=== PATIENT | male | born 1955 | race African-American/Black ===

== ENCOUNTER 2017-05-01 06:47 | Day surgery (SDC) | payer MEDICARE ==
[~2017-05-01 06:47] MED LIST: CRESTOR40 MG PO; TIMOLOL MALEAT IO; TIMOPTIC XE OU; XALATAN0.005 % OU
[2017-05-01 11:01] VITALS: BP 137/81
== END 2017-05-01 11:15 | disposition home or self-care (01) ==
LOC: ENDO 06:47
PROVIDERS: ATTEND Surgery
PROC: 0DJD8ZZ Inspection of Lower Intestinal Tract, Via Natural or Artificial Opening Endoscopic (ICD-10-PCS; principal; 2017-05-01)
DX: Z12.11 Encounter for screening for malignant neoplasm of colon (principal); K57.30 Diverticulosis of large intestine without perforation or abscess without bleeding; E78.00 Pure hypercholesterolemia, unspecified; H54.8 Legal blindness, as defined in USA; Z98.890 Other specified postprocedural states

== ENCOUNTER 2018-01-30 09:51 | Observation (INO) | payer MEDICARE ==
[~2018-01-30] VITALS: Ht 182.9 cm; Wt 176.1 kg
[2018-01-30 10:16] LABS: HEMATOCRIT 43.6 % (39.0-50.0); IMMATURE GRANULOCYTES 1.3 % (0.0-1.0); MEAN CELL VOLUME 92.4 fL CALC (80.0-100.0); MEAN CORPUSCULAR HGB 29.7 pG CALC (26.0-32.0); MEAN CORPUSCULAR HGB CONC 32.1 g/L CALC (32.0-36.0); NEUT# 9.69 thou/uL (1.82-7.42); RED BLOOD COUNT 4.72 mill/uL (4.70-6.10); RED CELL DISTRI WIDTH 15.6 % (11.5-15.5)
[2018-01-30 10:36] LABS: ANION GAP 18 (6-22 (CALC)); BUN 10 mg/dL (8-23); BUN/CREATININE RATIO 15 (12-20 (CALC)); CARBON DIOXIDE 25 mmol/l (22-30); CHLORIDE 105 mmol/l (95-108); CREATININE 0.7 mg/dL (0.7-1.3); GFR > 60 ML/MIN (>=60 (CALC)); GFR FOR AFR.AMER. > 60 ML/MIN (>=60 (CALC)); POTASSIUM 4.3 mmol/l (3.5-5.1); SODIUM 143 mmol/l (137-146)
[2018-01-30 12:37] VITALS: BP 119/71
[2018-01-30 16:00] VITALS: BP 134/79
[2018-01-30 20:00] VITALS: BP 102/65
[2018-01-31 00:25] VITALS: BP 141/86
[2018-01-31 04:25] VITALS: BP 144/73
[2018-01-31 06:08] LABS: HEMATOCRIT 44.3 % (39.0-50.0); HEMOGLOBIN 14.3 g/dl (14.0-18.0); IMMATURE GRANULOCYTES 1.1 % (0.0-1.0); MEAN CELL VOLUME 91.5 fL CALC (80.0-100.0); MEAN CORPUSCULAR HGB 29.5 pG CALC (26.0-32.0); MEAN CORPUSCULAR HGB CONC 32.3 g/L CALC (32.0-36.0); NEUT# 7.47 thou/uL (1.82-7.42); RED BLOOD COUNT 4.84 mill/uL (4.70-6.10); RED CELL DISTRI WIDTH 15.6 % (11.5-15.5)
[2018-01-31 06:13] LABS: ANION GAP 16 (6-22 (CALC)); BUN 10 mg/dL (8-23); BUN/CREATININE RATIO 16 (12-20 (CALC)); CALCULATED LDLCHOLESTEROL 61 mg/dL (62-129 (CALC)); CARBON DIOXIDE 27 mmol/l (22-30); CHLORIDE 104 mmol/l (95-108); CHOLESTEROL HDL RATIO 1.9 (<4.4 (CALC)); CREATININE 0.7 mg/dL (0.7-1.3); GFR > 60 ML/MIN (>=60 (CALC)); GFR FOR AFR.AMER. > 60 ML/MIN (>=60 (CALC)); HDL CHOLESTEROL 83 mg/dL (>=40); POTASSIUM 4.2 mmol/l (3.5-5.1); SODIUM 143 mmol/l (137-146); TOTAL CHOLESTEROL 154 mg/dl (0-199); TOTAL TRIGLYCERIDES 52 mg/dl (30-149); VLDL CHOLESTROL 10 mg/dl (4-45 (CALC))
[2018-01-31 07:16] VITALS: BP 147/81
[2018-01-31] MEDS ORDERED: ASPIRIN CHEWABL81 MG PO (08:51)
== END 2018-01-31 09:45 | disposition home or self-care (01) ==
LOC: ED 09:51 → ED-I 11:00 → ED 11:28 → MS2 11:29
PROVIDERS: Family Medicine; ADMIT Internal Medicine; ATTEND Internal Medicine
DX: R07.89 Other chest pain (principal); E78.5 Hyperlipidemia, unspecified; G47.33 Obstructive sleep apnea (adult) (pediatric); K44.9 Diaphragmatic hernia without obstruction or gangrene; F17.290 Nicotine dependence, other tobacco product, uncomplicated

== ENCOUNTER 2020-12-19 03:15 | Emergency (ER) | payer MEDICARE ==
[~2020-12-19] VITALS: Ht 182.9 cm; Wt 194.5 kg
[~2020-12-19 03:15] MED LIST changes: +ASPIRIN CHEWABL81 MG PO; +ASPIRIN81 MG PO; +BETIMOL0.25 % OP; +LASIX 80 MG TAB80 M1 PO; +LOSARTAN POT50 MG PO; +TIZANIDINE2 MG PO
[2020-12-19] MEDS ORDERED: POTASSIUM CHLO20 ME2 PO (03:48)
[2020-12-19 05:07] VITALS: BP 164/76
[2020-12-19 05:25] LABS: URINE BILIRUBIN - DIPSTICK NEGATIVE (NEGATIVE); URINE BLOOD DIPSTICK NEGATIVE (NEGATIVE); URINE CLARITY CLEAR; URINE COLOR YELLOW; URINE GLUCOSE - DIPSTICK NEGATIVE (NEGATIVE); URINE KETONE NEGATIVE (NEGATIVE); URINE LEUK ESTERASE NEGATIVE (Negative); URINE NITRITE - DIPSTICK NEGATIVE (Negative); URINE PH 5.5 (4.5-8.0); URINE PROTEIN - DIPSTICK 30 mg/dL (NEG-TRACE); URINE SPECIFIC GRAVITY 1.025; URINE UROBILINOGEN - DIPSTICK 0.2 E.U./dL (0.2)
[2020-12-19 05:34] LABS: URINE BACTERIA FEW hpf; URINE EPITHELIAL CELLS FEW EPI/hpf (0-FEW); URINE RBC 0-2 RBC/hpf (0-5)
== END 2020-12-19 05:15 | disposition home or self-care (01) ==
LOC: ED 03:15
PROVIDERS: Emergency Medicine
DX: U07.1 COVID-19 (principal); R52 Pain, unspecified; I10 Essential (primary) hypertension; F17.200 Nicotine dependence, unspecified, uncomplicated

== ENCOUNTER 2020-12-24 20:21 | Emergency (ER) | payer MEDICARE ==
[~2020-12-24] VITALS: Ht 182.9 cm; Wt 186.0 kg
[~2020-12-24 20:21] MED LIST changes: +LASIX 20 MG TAB20 MG PO; -LASIX 80 MG TAB80 M1 PO; +POTASSIUM CHLO10 MEQ PO
[2020-12-24] MEDS ORDERED: LATANOPROST0.005 % OU (21:13)
[2020-12-24] MEDS ORDERED: BRIMONIDINE TAR0.2 % OP (21:14)
[2020-12-24 21:55] LABS: HEMATOCRIT 40.6 % (39.0-50.0); HEMOGLOBIN 12.7 g/dl (14.0-18.0); IMMATURE GRANULOCYTES 0.6 % (0.0-5.0); MEAN CELL VOLUME 91.9 fL CALC (80.0-100.0); MEAN CORPUSCULAR HGB 28.7 pG CALC (26.0-32.0); MEAN CORPUSCULAR HGB CONC 31.3 g/dL CAL (32.0-36.0); NEUT# 5.88 thou/uL (1.82-7.42); RED BLOOD COUNT 4.42 mill/uL (4.70-6.10); RED CELL DISTRI WIDTH 14.5 % (11.5-15.5)
[2020-12-24 22:03] LABS: ALBUMIN 4.2 g/dL (3.2-5.0); ALKALINE PHOSPHATASE 50 u/l (38-126); ANION GAP 13 (6-22 (CALC)); BILIRUBIN, TOTAL 0.8 mg/dL (0.0-1.4); BUN 6 mg/dL (8-23); BUN/CREATININE RATIO 9 (12-20 (CALC)); CARBON DIOXIDE 27 mmol/l (22-30); CHLORIDE 100 mmol/l (95-108); CREATININE 0.7 mg/dL (0.7-1.3); GFR > 60 ML/MIN (>=60 (CALC)); GFR FOR AFR.AMER. > 60 ML/MIN (>=60 (CALC)); POTASSIUM 3.8 mmol/l (3.5-5.1); SGOT/AST 54 u/l (19-48); SODIUM 136 mmol/l (137-146)
[2020-12-24 22:09] LABS: ACT PARTIAL THROMBO TIME 27.7 SECONDS (20.0-32.5); PROTHROMBIN TIME 10.2 SECONDS (9.0-12.5)
[2020-12-24 22:15] LABS: D-DIMER 0.65 mg/L (0.19-0.60); MYOGLOBIN 40 ng/mL (0 - 121)
[2020-12-24 23:32] VITALS: BP 115/62
== END 2020-12-24 23:50 | disposition home or self-care (01) ==
LOC: ED 20:21
PROVIDERS: Family Medicine
DX: U07.1 COVID-19 (principal); I10 Essential (primary) hypertension; H54.8 Legal blindness, as defined in USA
CPT/HCPCS: Q9967

== ENCOUNTER 2022-05-28 06:17 | Observation (INO) | payer MEDICARE ==
[2022-05-28] VITALS (21 sets, daily range): BP systolic 128–205; BP diastolic 54–177
[~2022-05-28] VITALS: Ht 182.9 cm; Wt 193.0 kg
[~2022-05-28 06:17] MED LIST changes: -BETIMOL0.25 % OP; +BETIMOL0.25 % OU; +BRIMONIDINE TAR0.2 % OP; +LATANOPROST0.005 % OU
[2022-05-28 07:14] LABS: HEMATOCRIT 39.8 % (39.0-50.0); HEMOGLOBIN 12.9 g/dl (14.0-18.0); IMMATURE GRANULOCYTES 1.1 % (0.0-5.0); MEAN CELL VOLUME 90.5 fL CALC (80.0-100.0); MEAN CORPUSCULAR HGB 29.3 pG CALC (26.0-32.0); MEAN CORPUSCULAR HGB CONC 32.4 g/dL CAL (32.0-36.0); NEUT# 5.5 thou/uL (1.82-7.42); RED BLOOD COUNT 4.4 mill/uL (4.70-6.10); RED CELL DISTRI WIDTH 14.8 % (11.5-15.5)
[2022-05-28 07:34] LABS: ALKALINE PHOSPHATASE 78 u/l (38-126); ANION GAP 12 (6-22 (CALC)); BILIRUBIN, TOTAL 0.4 mg/dL (0.0-1.4); BUN 11 mg/dL (8-23); BUN/CREATININE RATIO 14 (12-20 (CALC)); CARBON DIOXIDE 22 mmol/l (22-30); CHLORIDE 108 mmol/l (95-108); CREATININE 0.8 mg/dL (0.7-1.3); GFR FOR AFR.AMER. > 60 ML/MIN (>=60 (CALC)); GFR OTHER RACES > 60 ML/MIN (>=60 (CALC)); MAGNESIUM 2.2 mg/dL (1.6-2.3); POTASSIUM 3.8 mmol/l (3.5-5.1); SGOT/AST 25 u/l (19-48); SODIUM 138 mmol/l (137-146); TOTAL PROTEIN 7.5 g/dL (6.3-8.2)
[2022-05-28 07:45] LABS: MYOGLOBIN 26 ng/mL (0 - 121)
[2022-05-28 07:46] LABS: D-DIMER 0.39 mg/L (0.19-0.60)
[2022-05-28 08:04] LABS: URINE BILIRUBIN - DIPSTICK NEGATIVE (NEGATIVE); URINE BLOOD DIPSTICK NEGATIVE (NEGATIVE); URINE COLOR YELLOW; URINE GLUCOSE - DIPSTICK NEGATIVE (NEGATIVE); URINE KETONE NEGATIVE (NEGATIVE); URINE LEUK ESTERASE NEGATIVE (NEGATIVE); URINE PROTEIN - DIPSTICK NEGATIVE (NEG-TRACE); URINE UROBILINOGEN - DIPSTICK 0.2 E.U./dL (0.2)
[2022-05-28 08:06] LABS: URINE NITRITE - DIPSTICK NEGATIVE (Negative)
[2022-05-28 08:23] LABS: ACT PARTIAL THROMBO TIME 26.9 SECONDS (20.0-32.5); PROTHROMBIN TIME 9.8 SECONDS (9.0-12.5)
[2022-05-28] MEDS ORDERED: LASIX 40 MG TAB40 MG PO (10:13)
[2022-05-28] MEDS ORDERED: CYANOCOBAL1000 MCG/M IM (12:55)
[2022-05-28] MEDS ORDERED: LOSARTAN POTASS50 MG PO (21:36)
[2022-05-29] VITALS (9 sets, daily range): BP systolic 115–178; BP diastolic 49–98
[2022-05-29 05:33] LABS: HEMATOCRIT 37.5 % (39.0-50.0); HEMOGLOBIN 12.1 g/dl (14.0-18.0); IMMATURE GRANULOCYTES 1.1 % (0.0-5.0); MEAN CELL VOLUME 91.7 fL CALC (80.0-100.0); MEAN CORPUSCULAR HGB 29.6 pG CALC (26.0-32.0); MEAN CORPUSCULAR HGB CONC 32.3 g/dL CAL (32.0-36.0); NEUT# 5.76 thou/uL (1.82-7.42); RED BLOOD COUNT 4.09 mill/uL (4.70-6.10); RED CELL DISTRI WIDTH 14.9 % (11.5-15.5)
[2022-05-29 05:43] LABS: ALBUMIN 3.4 g/dL (3.2-5.0); ALKALINE PHOSPHATASE 61 u/l (38-126); ANION GAP 10 (6-22 (CALC)); BILIRUBIN, TOTAL 0.3 mg/dL (0.0-1.4); BUN 10 mg/dL (8-23); BUN/CREATININE RATIO 14 (12-20 (CALC)); CALCULATED LDLCHOLESTEROL 66 mg/dL (62-129 (CALC)); CARBON DIOXIDE 25 mmol/l (22-30); CHLORIDE 111 mmol/l (95-108); CHOLESTEROL HDL RATIO 2.5 (<4.4 (CALC)); CREATININE 0.7 mg/dL (0.7-1.3); GFR FOR AFR.AMER. > 60 ML/MIN (>=60 (CALC)); GFR OTHER RACES > 60 ML/MIN (>=60 (CALC)); HDL CHOLESTEROL 55 mg/dL (>=40); MAGNESIUM 2.1 mg/dL (1.6-2.3); POTASSIUM 3.9 mmol/l (3.5-5.1); SGOT/AST 13 u/l (19-48); SODIUM 141 mmol/l (137-146); TOTAL CHOLESTEROL 138 mg/dl (0-199); TOTAL PROTEIN 6.3 g/dL (6.3-8.2); TOTAL TRIGLYCERIDES 81 mg/dl (30-149); VLDL CHOLESTROL 16 mg/dl (4-45 (CALC))
[2022-05-30] VITALS (9 sets, daily range): BP systolic 117–152; BP diastolic 55–90
[2022-05-30 06:11] LABS: ANION GAP 9 (6-22 (CALC)); BUN 8 mg/dL (8-23); BUN/CREATININE RATIO 12 (12-20 (CALC)); CARBON DIOXIDE 22 mmol/l (22-30); CHLORIDE 115 mmol/l (95-108); CREATININE 0.7 mg/dL (0.7-1.3); GFR FOR AFR.AMER. > 60 ML/MIN (>=60 (CALC)); GFR OTHER RACES > 60 ML/MIN (>=60 (CALC)); POTASSIUM 3.6 mmol/l (3.5-5.1); SODIUM 143 mmol/l (137-146)
[2022-05-31 03:45] VITALS: BP 145/70
[2022-05-31 07:08] VITALS: BP 162/78
[2022-05-31 12:00] VITALS: BP 164/87
[2022-05-31] MEDS ORDERED: NITROSTAT0.4 MG SL (12:31)
== END 2022-05-31 13:15 | disposition home or self-care (01) ==
LOC: ED 06:17 → ED-I 09:35 → ED 09:51 → MS2 09:52
PROVIDERS: Family Medicine; Nurse Practitioner; ADMIT Internal Medicine; ATTEND Internal Medicine
PROC: 02HV33Z Insertion of Infusion Device into Superior Vena Cava, Percutaneous Approach (ICD-10-PCS; principal; 2022-05-28)
PROC: B518ZZA Fluoroscopy of Superior Vena Cava, Guidance (ICD-10-PCS; 2022-05-28)
DX: R07.89 Other chest pain (principal); R42 Dizziness and giddiness; R94.39 Abnormal result of other cardiovascular function study; I11.0 Hypertensive heart disease with heart failure; I50.9 Heart failure, unspecified; R09.02 Hypoxemia; E78.00 Pure hypercholesterolemia, unspecified; G47.33 Obstructive sleep apnea (adult) (pediatric); H40.9 Unspecified glaucoma; H54.8 Legal blindness, as defined in USA; E66.01 Morbid (severe) obesity due to excess calories; F17.290 Nicotine dependence, other tobacco product, uncomplicated; Z68.43 Body mass index [BMI] 50.0-59.9, adult; Z20.822 Contact with and (suspected) exposure to COVID-19
CPT/HCPCS: A9502; J1650; J2785